=== PATIENT | female | born 1995 | race Caucasian/White ===

== ENCOUNTER 2019-11-25 12:41 | Observation (INO) | payer OTHER ==
[~2019-11-25] VITALS: Ht 172.7 cm; Wt 59.5 kg
--- NOTE | 2019-11-25 12:57 | NUR ---
Called from lobby for triage, no answer.
--- NOTE | 2019-11-25 13:14 | NUR ---
PT HERE WITH C/O SWELLING AND POSSIBLE HEMATOMA TO PERINEAL AREA. PT STATES SEEN PREVIOUSLY FOR THIS AND WAS ON PO ABX AND IT HAS NOT GOTTEN ANY BETTER. PT STATES NO PAIN BUT REPORTS "TENDER WHEN SOMETHING TOUCHES IT AND IT STINGS SOMETIMES." PT DENIES ANY ABNORMAL DISCHARGE, BLEEDING, OR RECENT SEXUAL ACTIVITY. PT AAO X 4, NAD, ROOM AIR, CALL LIGHT WITHIN REACH, MOM AT BEDSIDE.
[2019-11-25 13:47] LABS: HCG UR SG 1.013 (1.003-1.030); MICROSCOPIC AUTO
[2019-11-25 13:52] LABS: CULTURE INDICATED? YES
--- NOTE | 2019-11-25 14:43 | NUR ---
THIS RN AT BEDSIDE WITH MD FOR PELVIC EXAM.
--- NOTE | 2019-11-25 14:51 | NUR ---
dr brooke spoke with dr foster
[2019-11-25] MEDS ORDERED: LIDOCAINE-MPF 1%, 5ML ONE (15:07)
[2019-11-25 15:08] LABS: CLUE CELLS NONE SEEN (NONE SEEN); WET PREP WBCS MODERATE (FEW)
--- NOTE | 2019-11-25 15:30 | NUR ---
[employer] WORKER AT BEDSIDE, THIS RN ASSISTED WITH I&D, CULTURES DELIVERED TO LAB.
[2019-11-25] MEDS ORDERED: CLINDAMYCIN 300 MG CAPSULE ONE (15:57)
[2019-11-25] MEDS ORDERED: IBUPROFEN 200 MG TABLET ONE (15:57)
[2019-11-25] MEDS ORDERED: HYDROcodone/APAP 5/325 TABLET ONE (15:57)
[2019-11-25] MEDS ORDERED: IBUPROFEN 200 MG TABLET PO PRN (16:00)
[2019-11-25] MEDS ORDERED: CLINDAMYCIN 300 MG CAPSULE PO ONE (16:00)
[2019-11-25] MEDS ORDERED: HYDROcodone/APAP 5/325 TABLET PO PRN (16:00)
--- NOTE | 2019-11-25 16:06 | NUR ---
BREAK RN: MEDICATED PER JAN. PT STATES PAIN IS 4/10. ICE PACK GIVEN. VERBALZIED NO OTHER NEEDS AT THIS TIME
--- NOTE | 2019-11-25 16:25 | NUR ---
PIV ESTABLISHED, PLAN FOR ADMIT. MED REC COMPLETED.
--- NOTE | 2019-11-25 17:46 | NUR ---
ORDERS FOR WOUND CULTURE PLACED AND COLLECTED.
--- NOTE | 2019-11-25 17:57 | NUR ---
REPORT GIVEN TO FLOOR RN, CARE TRANSFERRED.
[2019-11-25 18:24] VITALS: BP 101/61
[2019-11-26 00:08] VITALS: BP 100/62
[2019-11-26 07:41] VITALS: BP 105/63
[2019-11-26] MEDS ORDERED: CLIN300C8 PO (08:55)
[2019-11-26] MEDS ORDERED: IBUP200T49 PO (08:55)
[2019-11-26] MEDS ORDERED: HYDR-3240 PO (09:11)
== END 2019-11-26 10:55 | disposition home or self-care (01) ==
LOC: ED 14:29 → EDIP 15:39 → 4NE 18:14 → DCLOUNGE 11-26 10:48
PROVIDERS: ADMIT Student in an Organized Health Care Education/Training Program; ATTEND Student in an Organized Health Care Education/Training Program
DX: N76.4 Abscess of vulva (principal); J45.909 Unspecified asthma, uncomplicated
CPT/HCPCS: 56405; 81001; 81025; 87070; 87075; 87086; 87205; 87210; 87491; 87591; 87808; 99284; G0378